=== PATIENT | male | born 1985 | race Caucasian/White ===

== ENCOUNTER 2021-09-07 14:13 | Outpatient (CLI) | payer BC ==
[2021-09-07] MEDS ORDERED: Magnevist 469MG/ML 20 ML VIAL ONE (15:47)
== END 2021-09-07 14:14 | disposition home or self-care (01) ==
LOC: CSHMRI 14:13
PROVIDERS: ATTEND Otolaryngology Otology & Neurotology
DX: H81.09 Meniere's disease, unspecified ear (principal)
CPT/HCPCS: 70553; A9579